=== PATIENT | male | born 2005 | race Caucasian/White ===

== ENCOUNTER 2023-05-04 10:47 | Inpatient (IN) | payer MEDICAID ==
[~2023-05-04] VITALS: Ht 182.9 cm; Wt 133.8 kg
[2023-05-04 10:57] VITALS: BP 121/58; PULSE 69; RESP 18; TEMP 98.1; O2SAT 97
[2023-05-04 11:10] VITALS: O2SAT 97
[2023-05-04] MEDS ORDERED: ONDANSETRON 4 MG/2 ML VIAL IVP ONE (12:00)
[2023-05-04] MEDS ORDERED: MORPHINE SULFATE 4 MG/ML SYR IVP ONE (12:00)
[2023-05-04 12:20] LABS: BASOPHILS # (AUTO) 0.1 K/uL (0.00-0.22); BASOPHILS % (AUTO) 0.5 % (0.0-2.0); EOSINOPHILS # (AUTO) 0.2 K/uL (0-0.4); EOSINOPHILS % (AUTO) 2.1 % (0.0-4.0); HEMATOCRIT 38.4 % (36-52); HEMOGLOBIN 12.8 g/dL (12.0-18.0); LYMPHOCYTES # (AUTO) 2.6 K/uL (2.0-11.5); LYMPHOCYTES % (AUTO) 24.3 % (20.5-51.1); MEAN CORPUSCULAR HEMOGLOBIN 27 pg (27-31); MEAN CORPUSCULAR HGB CONC 33 g/dL (33-37); MEAN CORPUSCULAR VOLUME 82.2 fL (80-94); MONOCYTES % (AUTO) 9.7 % (1.7-9.3); NEUTROPHILS # (AUTO) 6.8 K/uL (1.8-7.7); NEUTROPHILS % (AUTO) 63.4 % (42.2-75.2); PLATELET COUNT (AUTO) 388 K/uL (140-450); RED BLOOD CELL COUNT(AUTO) 4.67 MIL/uL (4.20-6.10); RED CELL DISTRIBUTION WIDTH 13.3 % (11.6-13.7); WHITE BLOOD COUNT (AUTO) 10.7 K/uL (4.5-11.0)
[2023-05-04] MEDS ORDERED: VANCOMYCIN 1,000 MG in DEXTROSE 5% 250 ML IV ONE (12:40)
[2023-05-04 12:42] LABS: INR 0.99 (0.8-1.2); PARTIAL THROMBOPLASTIN TIME 27.5 secs (22-35.6); PROTHROMBIN TIME 10.4 secs (10.8-13.4)
[2023-05-04 12:44] LABS: ALBUMIN 3.6 g/dL (3.4-5.0); ANION GAP 10.7 (8-16); CALCIUM 9.3 mg/dL (8.5-10.1); CARBON DIOXIDE 26.9 mmol/L (21-32); CREATININE 0.7 mg/dL (0.6-1.3); POTASSIUM 3.6 mmol/L (3.5-5.1); TOTAL BILIRUBIN 0.6 mg/dL (0.0-1.0); TOTAL PROTEIN, SERUM 7.4 g/dL (6.4-8.2)
[2023-05-04] MEDS ORDERED: VANCOMYCIN 1,000 MG VIAL ONE (13:13)
[2023-05-04] MEDS ORDERED: ONDANSETRON 4 MG/2 ML VIAL IVP PRN (14:05)
[2023-05-04] MEDS ORDERED: ZOLPIDEM 10 MG TAB PO PRN (14:05)
[2023-05-04] MEDS ORDERED: DOCUSATE SODIUM 100 MG GELCAP PO PRN (14:05)
[2023-05-04] MEDS ORDERED: ACETAMINOPHEN 325 MG TAB PO PRN (14:05)
[2023-05-04] MEDS ORDERED: LORazepam 2 MG/ML VIAL IVP PRN (14:05)
[2023-05-04] MEDS ORDERED: MAG SULF 2000 MG/WATER PREMIX 50 ML IV PRN (14:05)
[2023-05-04] MEDS ORDERED: POTASSIUM CHLORIDE 10 MEQ TABER PO PRN (14:05)
[2023-05-04 15:34] VITALS: PULSE 68; RESP 20; O2SAT 99
[2023-05-04 16:00] VITALS: BP 106/50; PULSE 56; RESP 16; TEMP 96.9; O2SAT 99
[2023-05-04] MEDS: NACL 0.9% 1,000 ML IV SCH ×2 (16:56→22:50)
[2023-05-04] MEDS: PIPERACILLIN/TAZOBACTAM 3.375 GM in DEXTROSE 5% 50 ML IV SCH ×3 (16:56→23:46)
[2023-05-04 20:00] VITALS: BP 142/76; PULSE 91; RESP 16; TEMP 97.4; O2SAT 94
[2023-05-04 22:08] LABS: AMPHETAMINE, URINE NEGATIVE ng/ml (NEG <=1000); BARBITURATE, URINE NEGATIVE ng/ml (NEG <=200); BENZODIAZEPINE, URINE NEGATIVE ng/mL (NEG <=200); CANNABINOID, URINE POSITIVE ng/mL (NEG <=50); COCAINE, URINE NEGATIVE ng/mL (NEG <=300); OPIATE, URINE POSITIVE ng/mL (NEG <=2000); PHENCYCLIDINE SCREEN,URINE NEGATIVE ng/mL (NEG <=25)
[2023-05-04] MEDS: MORPHINE SULFATE 2 MG/ML SYR IVP PRN (23:53)
[2023-05-05] MEDS: NACL 0.9% 1,000 ML IV SCH ×3 (03:08→23:41)
[2023-05-05] MEDS: PIPERACILLIN/TAZOBACTAM 3.375 GM in DEXTROSE 5% 50 ML IV SCH ×4 (06:06→23:41)
[2023-05-05 06:09] LABS: BASOPHILS % (AUTO) 0.3 % (0.0-2.0); EOSINOPHILS # (AUTO) 0.2 K/uL (0-0.4); HEMATOCRIT 36.8 % (36-52); HEMOGLOBIN 12.3 g/dL (12.0-18.0); LYMPHOCYTES # (AUTO) 2.2 K/uL (2.0-11.5); LYMPHOCYTES % (AUTO) 24.9 % (20.5-51.1); MEAN CORPUSCULAR HEMOGLOBIN 27 pg (27-31); MEAN CORPUSCULAR HGB CONC 33 g/dL (33-37); MEAN CORPUSCULAR VOLUME 81.7 fL (80-94); MONOCYTES # (AUTO) 0.9 K/uL (0.8-1.0); MONOCYTES % (AUTO) 9.8 % (1.7-9.3); NEUTROPHILS # (AUTO) 5.6 K/uL (1.8-7.7); PLATELET COUNT (AUTO) 377 K/uL (140-450); RED CELL DISTRIBUTION WIDTH 13.3 % (11.6-13.7); WHITE BLOOD COUNT (AUTO) 8.9 K/uL (4.5-11.0)
[2023-05-05 06:26] LABS: ANION GAP 13.1 (8-16); CALCIUM 9.2 mg/dL (8.5-10.1); CREATININE 0.8 mg/dL (0.6-1.3); POTASSIUM 4.1 mmol/L (3.5-5.1)
[2023-05-05 07:57] VITALS: BP 122/68; PULSE 55; RESP 18; TEMP 97.1; O2SAT 100
[2023-05-05] MEDS ORDERED: LIDOCAINE 1% 500 MG/ 50 ML VIAL INJ SCH (08:10)
[2023-05-05] MEDS: MORPHINE SULFATE 2 MG/ML SYR IVP PRN ×2 (09:15→21:58)
[2023-05-05 15:14] VITALS: BP 138/89; PULSE 71; RESP 16; TEMP 96.7; O2SAT 96
[2023-05-05 19:23] VITALS: O2SAT 100
[2023-05-05 20:00] VITALS: BP 116/64; PULSE 65; RESP 18; TEMP 97.9; O2SAT 99
[2023-05-06] MEDS: PIPERACILLIN/TAZOBACTAM 3.375 GM in DEXTROSE 5% 50 ML IV SCH ×4 (05:54→23:41)
[2023-05-06 06:33] LABS: ANION GAP 12.1 (8-16); CALCIUM 9.5 mg/dL (8.5-10.1); CARBON DIOXIDE 27.2 mmol/L (21-32); CREATININE 0.8 mg/dL (0.6-1.3); POTASSIUM 4.3 mmol/L (3.5-5.1)
[2023-05-06 06:50] LABS: BASOPHILS % (AUTO) 0.3 % (0.0-2.0); EOSINOPHILS # (AUTO) 0.2 K/uL (0-0.4); EOSINOPHILS % (AUTO) 2.8 % (0.0-4.0); HEMATOCRIT 37.4 % (36-52); HEMOGLOBIN 12.6 g/dL (12.0-18.0); LYMPHOCYTES # (AUTO) 2.4 K/uL (2.0-11.5); LYMPHOCYTES % (AUTO) 33.3 % (20.5-51.1); MEAN CORPUSCULAR HEMOGLOBIN 27 pg (27-31); MEAN CORPUSCULAR HGB CONC 34 g/dL (33-37); MEAN CORPUSCULAR VOLUME 81.5 fL (80-94); MONOCYTES # (AUTO) 0.6 K/uL (0.8-1.0); NEUTROPHILS # (AUTO) 3.9 K/uL (1.8-7.7); NEUTROPHILS % (AUTO) 54.6 % (42.2-75.2); PLATELET COUNT (AUTO) 421 K/uL (140-450); RED BLOOD CELL COUNT(AUTO) 4.58 MIL/uL (4.20-6.10); RED CELL DISTRIBUTION WIDTH 13.1 % (11.6-13.7); WHITE BLOOD COUNT (AUTO) 7.1 K/uL (4.5-11.0)
[2023-05-06 08:00] VITALS: BP 125/76; PULSE 69; RESP 18; TEMP 98.1; O2SAT 99
[2023-05-06] MEDS: NACL 0.9% 1,000 ML IV SCH ×3 (09:52→22:57)
[2023-05-06 12:13] VITALS: O2SAT 97
[2023-05-06 16:00] VITALS: BP 140/68; PULSE 60; RESP 18; TEMP 97.8; O2SAT 98
[2023-05-06 20:00] VITALS: BP 123/66; PULSE 53; PULSE 99; RESP 18; TEMP 97.2; O2SAT 99
[2023-05-07 04:00] VITALS: BP 105/74; PULSE 60; RESP 18; TEMP 97.5; O2SAT 99
[2023-05-07] MEDS: PIPERACILLIN/TAZOBACTAM 3.375 GM in DEXTROSE 5% 50 ML IV SCH ×3 (05:07→17:00)
[2023-05-07 06:17] LABS: BASOPHILS % (AUTO) 0.7 % (0.0-2.0); EOSINOPHILS # (AUTO) 0.2 K/uL (0-0.4); EOSINOPHILS % (AUTO) 2.3 % (0.0-4.0); HEMATOCRIT 38.6 % (36-52); HEMOGLOBIN 13.2 g/dL (12.0-18.0); LYMPHOCYTES # (AUTO) 2.7 K/uL (2.0-11.5); LYMPHOCYTES % (AUTO) 37.2 % (20.5-51.1); MEAN CORPUSCULAR HEMOGLOBIN 28 pg (27-31); MEAN CORPUSCULAR HGB CONC 34 g/dL (33-37); MEAN CORPUSCULAR VOLUME 80.4 fL (80-94); MONOCYTES # (AUTO) 0.7 K/uL (0.8-1.0); MONOCYTES % (AUTO) 9.8 % (1.7-9.3); NEUTROPHILS # (AUTO) 3.6 K/uL (1.8-7.7); PLATELET COUNT (AUTO) 472 K/uL (140-450); WHITE BLOOD COUNT (AUTO) 7.3 K/uL (4.5-11.0)
[2023-05-07 06:34] LABS: CALCIUM 9.6 mg/dL (8.5-10.1); CARBON DIOXIDE 24.9 mmol/L (21-32); CREATININE 0.8 mg/dL (0.6-1.3); POTASSIUM 3.9 mmol/L (3.5-5.1)
[2023-05-07 08:01] VITALS: O2SAT 97
[2023-05-07 08:22] VITALS: BP 156/78; PULSE 52; RESP 18; TEMP 97.6; O2SAT 99
[2023-05-07] MEDS: NACL 0.9% 1,000 ML IV SCH ×3 (08:35→21:01)
[2023-05-07 16:12] VITALS: BP 124/62; PULSE 52; RESP 18; TEMP 97.6; O2SAT 99
[2023-05-07 20:00] VITALS: BP 126/64; PULSE 54; RESP 18; TEMP 96.6; O2SAT 99
[2023-05-08] MEDS: PIPERACILLIN/TAZOBACTAM 3.375 GM in DEXTROSE 5% 50 ML IV SCH ×2 (00:38→05:30)
[2023-05-08 04:00] VITALS: BP 122/59; PULSE 59; RESP 18; TEMP 97.1; O2SAT 100
[2023-05-08 06:31] LABS: BASOPHILS # (AUTO) 0.1 K/uL (0.00-0.22); BASOPHILS % (AUTO) 0.8 % (0.0-2.0); EOSINOPHILS # (AUTO) 0.2 K/uL (0-0.4); EOSINOPHILS % (AUTO) 2.4 % (0.0-4.0); HEMATOCRIT 41.7 % (36-52); HEMOGLOBIN 14.1 g/dL (12.0-18.0); LYMPHOCYTES # (AUTO) 2.8 K/uL (2.0-11.5); LYMPHOCYTES % (AUTO) 37.4 % (20.5-51.1); MEAN CORPUSCULAR HEMOGLOBIN 27 pg (27-31); MEAN CORPUSCULAR HGB CONC 34 g/dL (33-37); MEAN CORPUSCULAR VOLUME 81.4 fL (80-94); MONOCYTES # (AUTO) 0.7 K/uL (0.8-1.0); NEUTROPHILS # (AUTO) 3.8 K/uL (1.8-7.7); NEUTROPHILS % (AUTO) 50.4 % (42.2-75.2); PLATELET COUNT (AUTO) 476 K/uL (140-450); RED BLOOD CELL COUNT(AUTO) 5.13 MIL/uL (4.20-6.10); RED CELL DISTRIBUTION WIDTH 12.9 % (11.6-13.7); WHITE BLOOD COUNT (AUTO) 7.5 K/uL (4.5-11.0)
[2023-05-08 06:42] LABS: ANION GAP 13.5 (8-16); CALCIUM 9.9 mg/dL (8.5-10.1); CARBON DIOXIDE 26.4 mmol/L (21-32); CREATININE 0.8 mg/dL (0.6-1.3); POTASSIUM 3.9 mmol/L (3.5-5.1)
[2023-05-08] MEDS ORDERED: AMOX-999 PO (08:43)
[2023-05-08 09:29] VITALS: BP 156/81; PULSE 59; RESP 18; TEMP 97.8
== END 2023-05-08 10:35 | disposition home or self-care (01) | DRG 720 ==
LOC: MED 10:47 → MTU 14:15
PROVIDERS: ADMIT General Practice; ATTEND General Practice
PROC: 0Y9F0ZZ Drainage of Right Knee Region, Open Approach (ICD-10-PCS; principal; 2023-05-05)
DX: A41.9 Sepsis, unspecified organism (principal); L02.415 Cutaneous abscess of right lower limb; L03.115 Cellulitis of right lower limb
CPT/HCPCS: 36415; 73562; 73701; 76881; 80048; 80053; 80305; 82550; 83036; 83605; 83735; 85025; 85610; 85651; 85730; 86140; 87040; 87070; 87075; 87081; 87186; 87205; 96365; 96375; 99285; J2001; J2270; J2405; J2543; J3370; J7060; Q0092; Q9967